=== PATIENT | male | born 2000 | race Hispanic/Latino ===

== ENCOUNTER 2020-03-21 20:40 | Emergency (ER) | payer SELFPAY ==
[2020-03-21 21:13] LABS: #Lymphocytes 1.7 thou/uL (1.20-3.40); #Monocytes 1.1 thou/uL (0.11-0.59); #Neutrophils 15.9 thou/uL (1.40-6.50); %Basophils 0.1 % (0.0-1.0); %Lymphocytes 9.2 % (28.0-48.0); %Monocytes 5.8 % (0.0-4.0); %Neutrophils 84.9 % (31.0-61.0); Hemoglobin 18.6 g/dL (14.0-18.0); Mean Corpuscular HGB CONC 36.4 g/dL (32.0-36.0); Mean Corpuscular Hemoglobin 33.6 pg (25.0-35.0); Mean Corpuscular Volume 92.3 fL (78.0-98.0); Mean Platelet Volume 7.9 fL (7.4-10.4); Platelet Count 325 thou/uL (130-400); RBC Distribution Width 11.7 % (11.5-14.5); Red Blood Cell (RBC) Count 5.53 mill/uL (4.00-5.20); White Blood Cell (WBC) Count 18.7 thou/uL (4.8-10.8)
[2020-03-21 21:34] LABS: ALT (SGPT) 21 U/L (8-55); AST (SGOT) 47 U/L (5-34); Albumin 6.1 g/dL (3.5-5.0); Alkaline Phosphatase 70 U/L (50-130); Anion Gap 24 mmol/L (10-20); BUN (Urea Nitrogen) 31 mg/dL (8.9-20.6); Calc. Creatinine Clearance 0 mL/min (70-130); Calcium 11.2 mg/dL (7.8-10.44); Carbon Dioxide 24 mmol/L (22-29); Chloride 91 mmol/L (98-107); Estimated GFR-MDRD 28; Globulin 3.8 g/dL (2.4-3.5); Glucose 104 mg/dL (70-105); Potassium 3.6 mmol/L (3.5-5.1); Protein, Total 9.9 g/dL (6.0-8.3); Sodium 135 mmol/L (136-145)
[2020-03-21 22:18] LABS: Lactic Acid 2.2 mmol/L (0.5-2.2)
--- NOTE | 2020-03-22 14:57 | EKG ---
Test Reason : Blood Pressure : / mmHG Vent. Rate : 094 BPM Atrial Rate : 094 BPM P-R Int : 144 ms QRS Dur : 090 ms QT Int : 338 ms P-R-T Axes : 074 065 049 degrees QTc Int : 422 ms Normal sinus rhythm Possible Left atrial enlargement Borderline ECG Confirmed by ABENA BRADY DO ([id number]), editorial cartoonist REX BERNARDO ([id number] on 03/22/2020 2:56:42 PM Referred By: Confirmed By:ABENA BRADY DO
== END 2020-03-21 22:33 | disposition home or self-care (01) ==
LOC: ERS 20:40
DX: T67.5XXA Heat exhaustion, unspecified, initial encounter (principal); E86.0 Dehydration; F17.200 Nicotine dependence, unspecified, uncomplicated; X30.XXXA Exposure to excessive natural heat, initial encounter
CPT/HCPCS: 80053; 83605; 85025; 93005; 96360